=== PATIENT | female | born 1965 | race Caucasian/White ===

== ENCOUNTER 2016-10-19 07:52 | Day surgery (SDC) | payer OTHER ==
[2016-10-19] VITALS (8 sets, daily range): BP systolic 116–145; BP diastolic 72–85; PULSE 49–83; RESP 12–22; O2SAT 93–100
[~2016-10-19] VITALS: Ht 157.5 cm; Wt 71.5 kg
--- NOTE | 2016-10-19 06:38 | PCM.HPANE ---
Patient Data Surgeon Admitting Provider: Attending Provider:Taqueria Justice DO Primary Care Physician:Ned Guerrero MD Other Provider:Garrison Moyer Anesthesia Reason for Visit Left Ac Joint Arthritis Ht/WT & BMI Height (Feet): 5 Height (Inches): 2 Weight (Kilograms): 72.3 Body Mass Index 29.00 Allergies Coded Allergies: No Known Allergies (Unverified , 10/13/16) Past Anesthesia History Anesthesia History: Denies:: Abnormal Airway, Anesthesia Reactions, Difficult Intubation, Fam Anesthesia Reaction, Fam Malignant Hypertherm, Malignant Hyperthermia Diabetes History Hx Diabetes?: No MRSA MRSA: No Medications Hypertension Medication: Yes (Lisinopril) Reported Medications Cyanocobalamin (Vitamin B-12) (Vitamin B-12)3,000 Mcg Tab.subl3,000 Mcg SL DAILY 10/19/16 Ferrous Sulfate (Iron)325 Mg [id number] Mg PO DAILY 10/19/16 Calcium Carbonate (Calcium)600 Mg [id number] Mg PO TID 10/19/16 [Vitamin D ] No Conflict Check5,000 Units PO DAILY 10/19/16 Amitriptyline 25 Mg Tab50 Mg PO HS #180 10/19/16 Hydrocodone/Ibuprofen 7.5-200 mg (Hydrocodone-Ibuprofen 7.5-200)1 Each Tablet1 Each PO BID PRN MIGRAINE PREVENTION Ref 0 10/19/16 Oxycodone ER (Oxycontin)10 Mg Tab.er.12h10 Mg PO HS 10/13/16 Methimazole 5 Mg Mowmoe27 Mg PO 2 DAYS WEEK 30 Days 10/13/16 Methimazole 10 Mg Lzjsgv01 Mg PO 5 DAYS WEEK 10/13/16 Losartan Potassium 100 Mg Iqqved109 Mg PO DAILY 10/13/16 Hydromorphone 4 Mg Tablet4 Mg PO Q4H PRN Pain Ref 0 10/13/16 Amlodipine 10 Mg Zmtqes59 Mg PO DAILY Ref 0 10/13/16 Discontinued Reported Medications Vit D3 & K/Berberine HCl/Hops (Ostera Tablet)1 Each Tablet1 Each PO 10/13/16 Vit B12/Intrins Fact/FA Cmb #2 (Intrinsi [id number] Tablet)1 Each Tablet1 Each PO 10/13/16 Carvedilol (Coreg)3.125 Mg Tablet3.125 Mg PO BID Ref 0 8/2/17 Hydrocodone/Ibuprofen 7.5-200 mg (Hydrocodone-Ibuprofen 7.5-200)1 Each Tablet1 Each PO PRN For Pain Ref 0 10/13/16 Amitriptyline 50 Mg Tab50 Mg PO HS Ref 0 10/13/16 History History of ENT Problems?: No HEENT History: Denies:: Abnormal Airway Cataracts Difficult Intubation Dysphagia Glaucoma Hearing Problem Sinus Problem TMJ Denture Type: None Teeth Condition: Within Normal Limits Hx of Heart Problems?: No Cardiovascular History: Positive for:: Hypertension (lisinopril) Denies:: Abdominal Aortic Aneurism Atrial Fibrillation Cardiac Surgery Chest Pain Congestive Heart Failure Coronary Artery Disease Edema Heart Murmur Peripheral Vascular Rheumatic Fever Thrombophlebitis Valvular Heart Disease Hx of Respiratory Problem?: No Respiratory History: Denies:: Use of C-PAP Machine Hx Neurologic Problems?: Yes Neurological History: Positive for:: Headaches Denies:: Alzheimer's Disease CVA Dementia Dizziness Multiple Sclerosis Parkinson's Disease Seizures TIA Other Neurological Pertinent: migraines Hx of GI Problems?: No Hx of Problems?: No Genitourinary History: Denies:: Urinary Tract Infection Female Hx: Positive for:: Problems with Breasts? Skin History: Denies:: History Skin Disorders? Hx Musculoskeletal Problems?: No Musculoskeletal History: Positive for:: Osteoarthritis Denies:: Back Injury Degenerative Joint Fibromyalgia Joint Replacement Musculoskeletal Trauma Myasthenia Gravis Systemic Lupus Psycho Social History: Positive for:: Anxiety Hx Depression Hx Surgeries?: Yes (2001 Gastric bypass) Other History: Positive for:: Hospitalization (2013 Pylonephritis) Thyroid Disease (Hyperthroidism) Denies:: Cancer Endocrine Disease History Blood Transfusions: Positive for:: Accept Blood Products? Blood Transfusions Denies:: Blood Transfuse Reaction Hx Diabetes: No Hx Alcohol Use: Yes (occassional)Hx Substance Use: No Stop/Bang S-Snoring: Do You Snore Loudly: No T-Tired: feel tired, fatigued: Yes O-Obsered: Observed not breath: No P-Blood Pressure: treated: Yes B- Body Mass Index > 35 kg/m2: No A- Age over 50: Yes N- Neck Large Circumference: No G- Gender Male: No RELL Total Score: 3 RELL Risk Assessment: Low Risk, <3 Yes Risk Assessment Category Category 1A: Patient has history of documented sleep apnea, and HAS NOT received any narcotic, sedative or anesthesia administration during this stay. Category 1B: Patient has history of documented sleep apnea, and HAS received any narcotic , sedative or anesthesia administration during this stay Category 2: Patient has SUSPECTED Obstructive Sleep Apnea, and HAS received any narcotic , sedative or anesthesia administration during this stay. Category 3: Patient has SUSPECTED Obstructive Sleep Apnea and HAS NOT received narcotic, sedative or anesthesia administration during this stay. Category 4: Outpatient in Procedural Areas with known sleep apnea or who screen positive for High Risk via the STOP/BANG questionnaire. Exam Exam General Appearance: Alert, Oriented X3, Cooperative, No Acute Distress HEENT/AIRWAY: MP 2 Lungs: Clear to Auscultation, Normal Air Movement Heart: Exam Unremarkable, Regular Rate/Rhythm, No Murmurs/Rubs/Gallops Plan Impression Patient chart reviewed, patient interviewed and anesthestic plan with risks, benefits, and alternatives discussed, and informed consent obtained. NPO per Anesth. Guidelines: Yes ASA Physical Status: ASA2 Mod Systemic Disease Anesthetic Plan: GA Bene/Risks/Altern/Consents: Yes HP Complete Prior to Induction: Yes Marisol Peraza MD Oct 19, 2016 06:38
[~2016-10-19 07:52] MED LIST: AMLO10TA3 PO; AMT50T PO; CARV3.12 PO; HYDR4TAB PO; LOSA100T29 PO; METH10TA4 PO; METH5TAB5 PO; OXYC10TA69 PO; VIT1TABL52 PO; VIT1TABL55 PO; [UNRECOGNIZED DRUG - CODE] PO
[2016-10-19] MEDS ORDERED: Propofol 10,000 mCg/mL 20 mL Inj ONE (07:53)
[2016-10-19] MEDS ORDERED: Succinylcholine Chloride 20 mg/mL 5 mL Inj ONE (07:53)
[2016-10-19] MEDS ORDERED: Dexamethasone 4 mg/mL Inj ONE (07:53)
[2016-10-19] MEDS ORDERED: Rocuronium 10 mg/mL 5 mL Inj ONE (07:53)
[2016-10-19] MEDS ORDERED: Ondansetron 2 mg/mL 2 mL Inj ONE (07:53)
[2016-10-19] MEDS ORDERED: fentaNYL-PF 50 mCg/mL 2 mL Inj ONE (07:53)
[2016-10-19] MEDS: Lactated Ringer's 1,000 ML IV SCH ×2 (08:04→11:13)
[2016-10-19] MEDS ORDERED: CeFAZolin 2 Gm/50 mL D5W Duplex Bag IV ONE (08:05)
[2016-10-19] MEDS ORDERED: [UNRECOGNIZED DRUG - CODE] PO (08:16)
[2016-10-19] MEDS ORDERED: CALC600T12 PO (08:19)
[2016-10-19] MEDS ORDERED: AMT25T PO (08:19)
[2016-10-19] MEDS ORDERED: FERR325T40 PO (08:19)
[2016-10-19] MEDS ORDERED: VITAMIN D PO (08:19)
[2016-10-19] MEDS ORDERED: CYAN30003 SL (08:19)
[2016-10-19] MEDS: CeFAZolin Inj 2 GM in IV Premix 1 EACH IV ONE (11:28)
[2016-10-19] MEDS ORDERED: Lidocaine 1%-Epi 1:100,000 20 mL Inj INFILTRATE ONE (11:48)
[2016-10-19] MEDS ORDERED: Lactated Ringer's 500 ML IV PRN (11:49)
[2016-10-19] MEDS ORDERED: Lactated Ringer's 1,000 ML IV SCH (11:49)
[2016-10-19] MEDS ORDERED: fentaNYL-PF 50 mCg/mL 2 mL Inj IVPUSH PRN (11:50)
[2016-10-19] MEDS ORDERED: Phenylephrine 10,000 mCg/mL Inj IVPUSH PRN (11:50)
[2016-10-19] MEDS ORDERED: HYDROmorphone 1 mg/mL Inj IVPUSH PRN (11:50)
[2016-10-19] MEDS ORDERED: Atropine 0.4 mg/mL Inj IVPUSH PRN (11:50)
[2016-10-19] MEDS ORDERED: Labetalol 5 mg/mL 4 mL Inj IV PRN (11:50)
[2016-10-19] MEDS ORDERED: EPHEDrine Sulfate 50 mg/mL Inj IVPUSH PRN (11:50)
[2016-10-19] MEDS ORDERED: Dexamethasone 4 mg/mL Inj IVPUSH PRN (11:50)
[2016-10-19] MEDS ORDERED: MetoCLOpramide 5 mg/mL 2 mL Inj IVPUSH PRN (11:50)
[2016-10-19] MEDS ORDERED: Ondansetron 2 mg/mL 2 mL Inj IVPUSH PRN (11:50)
[2016-10-19] MEDS ORDERED: Ropivacaine-PF 0.5% 30 mL Inj INFILTRATE ONE (12:05)
[2016-10-19] MEDS ORDERED: Acetaminophen IV 1,000 MG in IV Premix 1 EACH IV ONE (13:20)
[2016-10-19] MEDS ORDERED: oxyCODONE-Acetamin 10-325 mg Tablet PO PRN (13:20)
--- NOTE | 2016-10-19 14:02 | OP ---
[address] [address] OPERATIVE REPORT PATIENT: MAGDI BOYLE : 1965 MR#: [id number] ADMIT: 10/19/2016 JOB ID: [id number] DATE OF SURGERY: 10/19/2016 PREOPERATIVE DIAGNOSIS(ES): Left shoulder acromioclavicular joint arthritis. POSTOPERATIVE DIAGNOSIS(ES): 1. Left shoulder acromioclavicular joint arthritis. 2. Left shoulder glenohumeral arthritis. 3. Biceps tendon tear with superior labrum tear and impingement. PROCEDURE: Left shoulder video arthroscopy with subacromial decompression, arthroscopic distal clavicle excision and mini open subpectoral biceps tenodesis with intra-articular debridement. SURGEON: Taqueria Justice D.O. STATE ARCHIVIST: Cici Pineda PA-C INDICATIONS: The patient is a 51-year-old female with left shoulder pain which began last February. He was having difficulty with overhead activity and difficulty working using her arm. Had cortisone injections which did not give her significant improvement and she failed conservative measures. Wishes to proceed with a shoulder arthroscopy. We discussed the risks, benefits, and possible complications of surgery including, but not limited to injury to nerves and vessels, infection, bleeding, incomplete relief of symptoms, stiffness, need for additional procedures. All questions were answered and the patient wished to proceed. A surgical assist was required for the successful completion of this procedure. PROCEDURE IN DETAIL: The patient was brought to the operating room. She was given a preoperative antibiotic, interscalene block and general anesthetic. Placed comfortably into the beach chair position. The left shoulder was sterilely prepped and draped. An incision was made over the posterolateral shoulder and a posterolateral portal was established. Inspection was undertaken in her glenohumeral joint. She was found have numerous articular fragments floating within the glenohumeral joint. An anterior portal was established under needle localization and the joint was debrided of loose chondral pieces and flaps. She was noted to have C3 as well as C4 chondromalacia on her humeral head and degenerative C3 type changes on her glenoid as well. Her superior labrum was torn and unstable and her long head biceps tendon was also torn, partial thickness at the insertion into the superior labrum. The biceps was released off of the superior labrum and the labrum was then debrided. The intra-articular debris was resected with the shaver and debrided. The rotator cuff was found to be intact from the articular side. The scope was then removed and replaced in the subacromial space, and a subacromial decompression was undertaken. Removing the bursa, she had a moderately large subacromial spur which was resected removing about 5 mm of bone. The distal clavicle was then co-planed and the distal clavicle was resected as well. She had significant spurring and arthritis within the AC joint and about 8 mm of bone was removed from the end of the clavicle giving a space of about 1 cm. Care was taken to ensure that the distal clavicle was removed in its entirety anterior to posterior, superficial to deep, and that the superior capsule was left intact. The rotator cuff was then inspected from the subacromial side and found to be intact. The scope was then removed and the portals were closed with interrupted nylon suture. An incision was made over the bicipital groove and dissection was carefully carried through subcutaneous tissue. Electrocautery was used for hemostasis. The fascia was opened and the biceps tendon was then herniated out through the wound. A Hohmann retractor was placed laterally onto bone and soft tissue was cleared from the distal aspect of the bicipital groove. A 4.5 drill hole was placed proximally and two drill holes were placed distally. The biceps tendon was cut to the appropriate length at the musculotendinous junction and then whipstitched with a FiberWire suture. I placed a 4.5 drill hole proximally and two 2.0 drill holes distally in the bicipital groove and the biceps tendon was passed so that it entered through the 4.5 drill hole and the sutures limbs exited through the two 2.0 drill holes. Using a free needle, the biceps was then tied back onto itself yielding excellent fixation and tenodesis of the biceps tendon with the appropriate resting tension. The wound was irrigated and then closed with 0 Vicryl to close the fascia. The subcu was closed with 2-0 Vicryl. The skin was closed with a running subcuticular 4-0 Monocryl. Naropin was added as an adjunct local anesthetic. Sterile dressings were applied. The patient tolerated the procedure well. BLOOD LOSS: Was 10 cc. POSTOPERATIVE PROTOCOL: Have the patient use the arm sling for three weeks with no lifting more than 1 pound for six weeks. She is given a prescription for Percocet 10/325 for pain as she is on chronic narcotic pain medication.
--- NOTE | 2016-10-19 14:07 | PCM.ANEP1 ---
Post Anesthesia PACU Phase 1 Assessment Vital Signs Vital Signs Date Time Temp Pulse Resp B/P Pulse Ox O2 Delivery O2 Flow Rate FiO2 10/19/16 13:59 75 14 117/80 95 Room Air 10/19/16 13:39 83 22 136/84 93 Room Air 10/19/16 13:25 76 16 136/84 100 Simple Mask 10 10/19/16 13:20 83 12 145/79 100 Simple Mask 10 10/19/16 13:18 36 79 14 145/85 100 Simple Mask 10 10/19/16 08:24 36.1 70 16 128/84 97 Room Air Level of Alertness: Awake, talking FARMER's with Equal Strength: Yes Pain: No Nausea or Vomiting: No CV Function & Hydration Stable: No Airway Device: Oxygen Delivery: Simple Mask Lungs: Clear to Auscultation, Normal Air Movement PACU Phase 2 Assessment Complications: No Follow up Care: No Patient Instructions Provided: N/A Marisol Peraza MD Oct 19, 2016 14:07
== END 2016-10-19 23:59 | disposition home or self-care (01) ==
LOC: SAS 07:52
PROVIDERS: ATTEND Orthopaedic Surgery
PROC: 0RBK4ZZ Excision of Left Shoulder Joint, Percutaneous Endoscopic Approach (ICD-10-PCS; 2016-10-19)
PROC: 0PBB4ZZ Excision of Left Clavicle, Percutaneous Endoscopic Approach (ICD-10-PCS; 2016-10-19)
PROC: 0RNK4ZZ Release Left Shoulder Joint, Percutaneous Endoscopic Approach (ICD-10-PCS; 2016-10-19)
PROC: 0LS40ZZ Reposition Left Upper Arm Tendon, Open Approach (ICD-10-PCS; principal; 2016-10-19 10:00)
DX: S46.112A Strain of muscle, fascia and tendon of long head of biceps, left arm, initial encounter (principal); S43.492A Other sprain of left shoulder joint, initial encounter; M19.012 Primary osteoarthritis, left shoulder; M75.42 Impingement syndrome of left shoulder; M75.22 Bicipital tendinitis, left shoulder; I10 Essential (primary) hypertension; Z98.84 Bariatric surgery status; E05.00 Thyrotoxicosis with diffuse goiter without thyrotoxic crisis or storm; X58.XXXA Exposure to other specified factors, initial encounter
CPT/HCPCS: 23430; 29824; 29826; 76942; J0171; J0330; J0690; J1100; J1170; J1885; J2250; J2405; J2765; J2795; J3010; J7120